=== PATIENT | male | born 1990 | race Two or more races ===

== ENCOUNTER 2019-02-28 05:12 | Emergency (ER) | payer MEDICAID ==
[~2019-02-28] VITALS: Ht 175.3 cm; Wt 77.1 kg
--- NOTE | 2019-02-28 05:27 | NUR ---
PT CAME IN C/O ABSCESS TO THE RIGHT AC. STATES HE INJECTED HIMSELF TO THE SITE WITH HEROIN 3DAYS AGO. TDAP UPDATED SMOKER/RECREATIONAL DRUG USER DENIES FEVER/CHILLS, DENIES NVD UPON INSPECTION, +ABSCESS AT 2-3X3CM, ROUND WITH IRREGULAR EDGES, RAISED ATLEAST 1-2CM, +ERYTHEMA MONITORED ACCORDINGLY, SIDERAILSX2 UP, BED AT LOWEST POSITION
--- NOTE | 2019-02-28 05:37 | NUR ---
MD AT BEDSIDE FOR HX AND PHYSICAL
--- NOTE | 2019-02-28 05:50 | NUR ---
PERFORMED I&D ALONG WITH ASSESSMENT OF R AC ABSCESS. +STERILE TECHNIQUE, APPLIED ABX OINTMENT ORDERED, COVERED WITH GAUZE 4X4 AND WRAPPED WITH SOFT CONFORMING GAUZE PT ABLE TO TOLERATE PROCEDURE, PT NAD OIL FIELD TECHNICIAN AT BEDSIDE.
[2019-02-28] MEDS ORDERED: NEOMY/BACITRA/POLYMYXIN B OINT UD PACKET TP ONE ×2 (05:57→06:00)
[2019-02-28] MEDS: LIDOCAINE HCL 1% 20 ML VIAL IJ ONE ×2 (06:11→06:38)
[2019-02-28] MEDS ORDERED: SULFAMETH/TRIMETH 800/160 MG TABLET PO ONE (06:30)
[2019-02-28] MEDS ORDERED: SULFAMETH/TRIMETH 800/160 MG TABLET ONE (06:35)
--- NOTE | 2019-02-28 06:35 | NUR ---
Patient discharged to home in stable conditon. Written and verbal after care instructions given. Patient verbalizes understanding of instructions. Patient ambulated with stable gait.
[2019-02-28 06:36] VITALS: BP 118/75
== END 2019-02-28 06:42 | disposition home or self-care (01) ==
LOC: ER 05:19
DX: L02.414 Cutaneous abscess of left upper limb (principal); R10.9 Unspecified abdominal pain; F17.200 Nicotine dependence, unspecified, uncomplicated; F12.10 Cannabis abuse, uncomplicated; F11.10 Opioid abuse, uncomplicated; F15.10 Other stimulant abuse, uncomplicated
CPT/HCPCS: 10060; 73080; 99283; J3490; A4663